=== PATIENT | female | born 1945 | race Caucasian/White ===

== ENCOUNTER 2024-09-14 02:09 | Outpatient (CLI) | payer OTHER, SELFPAY ==
--- NOTE | 2024-09-14 12:49 | DI.RAD_ITS ---
Exam(s) XR CHEST 2V PA LATERAL EXAM: XR CHEST 2V PA LATERAL CLINICAL HISTORY: chronic cough,r05.3 TECHNIQUE: 2D digital imaging was performed. Two views. COMPARISON: No exams were available for comparison FINDINGS: HEART: Normal size. Aorta: Not dilated. PULMONARY VASCULATURE: Normal. MEDIASTINUM: Unremarkable. LUNGS: Minimal linear atelectasis, otherwise clear. PLEURAL SPACE: No pleural effusion or pneumothorax. BONE:Degenerative changes in the spine. No compression fractures. SOFT TISSUES: Unremarkable. IMPRESSION: No acute abnormality. DATA REPOSITORY: RADIATION DOSE DELIVERED:
== END 2024-09-14 02:29 ==
LOC: DI 02:09
PROVIDERS: PCP Nurse Practitioner Family; Visit Provider Nurse Practitioner Family
DX: R05.3 Chronic cough (principal)
CPT/HCPCS: 71046

== ENCOUNTER 2025-04-26 10:28 | Emergency (ER) | payer OTHER, SELFPAY ==
[2025-04-26] VITALS (16 sets, daily range): BP systolic 138–176; BP diastolic 70–83; PULSE 52–109; RESP 20–29; TEMP 37.6–38.2; O2SAT 93–100
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
--- NOTE | 2025-04-26 12:21 | DI.RAD_ITS ---
Exam(s) XR CHEST 2V PA LATERAL EXAM: XR CHEST 2V PA LATERAL CLINICAL HISTORY: cough TECHNIQUE: 2D digital imaging was performed. Two views. COMPARISON: CR XR CHEST 2V PA LATERAL from 09/14/2024 FINDINGS: HEART: Normal size. Aorta: Not dilated. PULMONARY VASCULATURE: Normal. MEDIASTINUM: Unremarkable. LUNGS: Clear. PLEURAL SPACE: No pleural effusion or pneumothorax. BONE:Unremarkable for age. SOFT TISSUES: Unremarkable. IMPRESSION: No acute abnormality. DATA REPOSITORY: RADIATION DOSE DELIVERED:
[2025-04-26 12:41] LABS: Abs Immature Grans 0.03 10^3/uL (0.0-0.06); HCT 45.0 % (36.0-46.0); HGB 14.8 g/dL (11.2-15.7); Immature Grans % 0.4 %; MCH 30.3 pg (27.0-33.0); MCHC 32.9 % (32.0-36.0); MCV 92 fL (80-95); MPV 9.6 fL (8.0-11.0); Platelet Count 212 10^3/uL (130-400); RBC 4.89 10^6/uL (3.93-5.22); RDW 13.0 % (11.7-14.6); RDW-SD 44.0 fL; WBC 8.19 10^3/uL (4.4-10.8)
[2025-04-26] MEDS: Normal Saline 1,000 ML 1000 ML IV (12:44)
[2025-04-26] MEDS: Albuterol 2.5 MG/3 ML INH SOLN VIAL UPD (12:44)
[2025-04-26 13:10] LABS: Lipase 38 U/L (<53)
[2025-04-26 13:11] LABS: Magnesium 2.0 mg/dL (1.6-2.6)
[2025-04-26 13:17] LABS: COVID-19 PCR Negative (Negative); RSV PCR Negative (Negative)
[2025-04-26 13:36] LABS: Glucose Negative (Negative)
[2025-04-26 13:46] LABS: ALT 17 U/L (10-49); AST 28 U/L (<34); Albumin 4.8 g/dL (3.2-5.0); Alkaline Phosphatase 82 U/L (46-116); Anion Gap 11.4 mmol/L (3-11); BUN 16 mg/dL (9-23); Bilirubin, Total 0.7 mg/dL (0.2-1.2); CO2 21.6 mmol/L (20.0-31.0); Calcium 8.9 mg/dL (8.3-10.6); Chloride 105 mmol/L (98-107); Glucose 102 mg/dL (74-106); Potassium 4.0 mmol/L (3.5-5.1); Sodium 138 mmol/L (136-145); Total Protein 7.7 g/dL (5.7-8.2)
[2025-04-26 13:47] LABS: RBC 0-2 HPF (0-2); WBC 0-2 HPF (0-5)
[2025-04-26 13:48] LABS: C & S Indicated? No
[2025-04-26] MEDS: Ibuprofen 400 MG TAB PO (14:13)
[2025-04-26] MEDS: Acetaminophen 500 MG TAB 1000 MG PO (14:14)
== END 2025-04-26 14:23 | disposition home or self-care (01) ==
PROVIDERS: Emergency Provider Physician Assistant; PCP Nurse Practitioner Family
DX: B34.9 Viral infection, unspecified (principal)
CPT/HCPCS: 36415; 80053; 83690; 87637; 94640; 96360; 99284; 71046; 81003; 81015; 83735; 85025; J7613